=== PATIENT | male | born 1985 | race Caucasian/White ===

== ENCOUNTER 2018-02-23 17:31 | Emergency (ER) | payer SELFPAY ==
[2018-02-23] MEDS ORDERED: Famotidine/PF 20 mg/2ml Vial ONE (18:13)
[2018-02-23 20:08] LABS: MONO NEGATIVE CONTROL ZONE White (Negative) (White); MONO POSITIVE CONTROL Pink Line (Positive) (PINK/RED); Mononucleosis NEGATIVE (NEGATIVE)
== END 2018-02-23 20:46 | disposition home or self-care (01) ==
LOC: ERS 17:31
DX: J02.9 Acute pharyngitis, unspecified (principal); R59.1 Generalized enlarged lymph nodes; Z71.6 Tobacco abuse counseling; I10 Essential (primary) hypertension; F17.210 Nicotine dependence, cigarettes, uncomplicated
CPT/HCPCS: 36415; 86308; 96361; 96374; 99406; S0028

== ENCOUNTER 2019-03-22 14:52 | Emergency (ER) | payer SELFPAY ==
[2019-03-22 15:23] LABS: #Basophils 0.1 thou/uL (0.0-0.2); #Eosinphils 0.3 thou/uL (0.0-0.7); #Monocytes 0.3 thou/uL (0.11-0.59); #Neutrophils 5.2 thou/uL (1.40-6.50); %Basophils 0.8 % (0.0-1.0); %Eosinophils 4.4 % (0.0-10.0); %Lymphocytes 25.1 % (21.0-51.0); %Monocytes 3.6 % (0.0-10.0); %Neutrophils 66.2 % (42.0-75.0); Hemoglobin 13.4 g/dL (14.0-18.0); Mean Corpuscular Hemoglobin 33.4 pg (27.0-31.0); Mean Corpuscular Volume 95.4 fL (78.0-98.0); Mean Platelet Volume 5.7 fL (7.4-10.4); Platelet Count 452 thou/uL (130-400); RBC Distribution Width 11.7 % (11.5-14.5); White Blood Cell (WBC) Count 7.8 thou/uL (4.8-10.8)
[2019-03-22 15:46] LABS: ALT (SGPT) 15 U/L (8-55); AST (SGOT) 17 U/L (5-34); Albumin 3.8 g/dL (3.5-5.0); Alkaline Phosphatase 104 U/L (40-110); Anion Gap 15 mmol/L (10-20); BUN (Urea Nitrogen) 19 mg/dL (8.9-20.6); Bilirubin, Total Less than 0.2 mg/dL (0.2-1.2); Calc. Creatinine Clearance 0 mL/min (70-130); Calcium 8.5 mg/dL (7.8-10.44); Carbon Dioxide 24 mmol/L (22-29); Chloride 103 mmol/L (98-107); Estimated GFR-MDRD 89; Globulin 3.8 g/dL (2.4-3.5); Glucose 99 mg/dL (70-105); Potassium 3.6 mmol/L (3.5-5.1); Protein, Total 7.6 g/dL (6.0-8.3); Sodium 138 mmol/L (136-145)
--- NOTE | 2019-03-22 16:13 | ULT ---
RIGHT LOWER EXTREMITY VENOUS DUPLEX EXAM: 03/22/19 HISTORY: Right leg pain and swelling. Real time color Doppler evaluation of the right lower extremity was performed from groin to calf. Thi s includes evaluation of common femoral, superficial and profunda femoral, saphenous, popliteal and p osterior tibial veins. This shows a patent deep venous system. There is normal compressibility and au gmentation. Mildly prominent inguinal lymph nodes are incidentally seen. IMPRESSION: No evidence of DVT of the right lower extremity. POS: OFF
== END 2019-03-22 16:50 | disposition home or self-care (01) ==
LOC: ERS 14:52
DX: R60.0 Localized edema (principal); I10 Essential (primary) hypertension; F17.210 Nicotine dependence, cigarettes, uncomplicated
CPT/HCPCS: 36415; 80053; 85025

== ENCOUNTER 2022-06-05 20:34 | Inpatient (IN) | payer MEDICAID, SELFPAY ==
[~2022-06-05 20:34] MED LIST: Iopamidol-370 76% 500 ML 1 ML ONE
[2022-06-05 21:12] LABS: #Lymphocytes 0.1 thou/uL (1.20-3.40); #Monocytes 0.1 thou/uL (0.11-0.59); #Neutrophils 4.2 thou/uL (1.40-6.50); %Basophils 0.5 % (0.0-1.0); %Eosinophils 0.2 % (0.0-10.0); %Lymphocytes 2.1 % (21.0-51.0); %Monocytes 1.1 % (0.0-10.0); %Neutrophils 96.1 % (42.0-75.0); Hemoglobin 13.1 g/dL (14.0-18.0); Mean Corpuscular Hemoglobin 32.4 pg (27.0-31.0); Mean Corpuscular Volume 95.4 fl (78.0-98.0); Mean Platelet Volume 7.6 fL (7.4-10.4); Platelet Count 132 10x3/uL (130-400); RBC Distribution Width 12.3 % (11.5-14.5); Red Blood Cell (RBC) Count 4.05 mill/uL (4.70-6.10); White Blood Cell (WBC) Count 4.3 10x3/uL (4.8-10.8)
[2022-06-05 21:24] LABS: Amphetamine Detected (NotDetected); Barbiturates Screen Not Detected (NotDetected); Benzodiazepine Screen Not Detected (NotDetected); Cocaine Metabolite Screen Not Detected (NotDetected); Methadone Not Detected (NotDetected); Methamphetamine Detected (NotDetected); Opiate Screen Not Detected (NotDetected); Oxycodone Screen Not Detected (NotDetected); Phencyclidine (PCP) Not Detected (NotDetected); THC/Cannabinoid Screen Not Detected (NotDetected); Tricyclic Screen Detected (NotDetected)
[2022-06-05 21:36] LABS: ALT (SGPT) 27 U/L (8-55); AST (SGOT) 94 U/L (5-34); Albumin 3.1 g/dL (3.5-5.0); Alkaline Phosphatase 115 U/L (40-110); Anion Gap 17 mmol/L (10-20); BUN (Urea Nitrogen) 40 mg/dL (8.9-20.6); Bilirubin, Total 0.3 mg/dL (0.2-1.2); CK (CPK) 1051 U/L (30-200); Calc. Creatinine Clearance 0 mL/min (70-130); Calcium 7.9 mg/dL (7.8-10.44); Carbon Dioxide 21 mmol/L (22-29); Chloride 95 mmol/L (98-107); Estimated GFR 42; Globulin 3.5 g/dL (2.4-3.5); Glucose 97 mg/dL (70-105); Potassium 3.9 mmol/L (3.5-5.1); Protein, Total 6.6 g/dL (6.0-8.3); Sodium 129 mmol/L (136-145)
[2022-06-05 21:42] LABS: Bilirubin Negative (Negative); Blood, Urine 2+ (Negative); Clarity Turbid (Clear); Glucose, Urine (Dipstick) Normal (Negative); Ketone, Urine Negative (Negative); Leukocyte Negative Leu/uL (Negative); Nitrite Negative (Negative); Protein, Urine (Dipstick) 200 mg/dL (Neg-Trace); RBC/HPF None Seen HPF (0-3); Squamous Epithelial 0-3 HPF (0-3); Urobilinogen Normal mg/dL (Less than 2); WBC/HPF 0-3 HPF (0-3)
[2022-06-05] MEDS ORDERED: Senokot S 8.6-50 MG TAB PO PRN (21:48)
[2022-06-05] MEDS ORDERED: Ondansetron ODT 4 MG TAB PO PRN (21:48)
[2022-06-05 21:54] LABS: Bacteria/HPF 3+ HPF (None Seen)
[2022-06-05] MEDS ORDERED: Furosemide 40 MG/4 ML VIAL ONE (21:58)
[2022-06-05] MEDS ORDERED: Furosemide 40 MG/4 ML VIAL SLOW IVP SCH (22:00)
[2022-06-05 22:06] LABS: Actual Bicarbonate (HCO3a) 22.5 mEq/L (22-28); Analyzer IN Cardio ER; Base Excess (BEa) -1.3 mEq/L (-2.0 to +3.0); CO2 Tension 35.3 mmHg (35.0-45.0); Calcium, Ionized (arterial) 1.02 mmol/L (1.12-1.30); Carboxyhemoglobin (COHb) 0.3 gm% (0.0-3.0); Hemoglobin (Hb) 13.3 g/dL (14.0-18.0); pH, Arterial 7.42 (7.35-7.45)
[2022-06-05 22:15] LABS: O2 Tension (PaO2), arterial 58.9 mmHg (80.0-100.0); Puncture Site RRA
[2022-06-05] MEDS ORDERED: Dextrose 5%-Lactated Ringers 1,000 ML IV SCH (22:15)
[2022-06-05 22:16] LABS: ALV-art Gradient 467.375 mmHg (0-20)
[2022-06-05] MEDS: Nicotine 14 MG PATCH TD SCH (23:42)
[2022-06-06 00:23] LABS: Lactic Acid 2.9 mmol/L (0.5-2.2)
[2022-06-06 03:19] LABS: #Lymphocytes 0.1 thou/uL (1.20-3.40); #Neutrophils 3.8 thou/uL (1.40-6.50); %Eosinophils 0.2 % (0.0-10.0); %Lymphocytes 3.4 % (21.0-51.0); %Monocytes 0.6 % (0.0-10.0); %Neutrophils 95.8 % (42.0-75.0); Hemoglobin 13.1 g/dL (14.0-18.0); Mean Corpuscular HGB CONC 33.7 g/dL (32.0-36.0); Mean Corpuscular Hemoglobin 32.5 pg (27.0-31.0); Mean Corpuscular Volume 96.6 fl (78.0-98.0); Mean Platelet Volume 8.2 fL (7.4-10.4); Platelet Count 121 10x3/uL (130-400); RBC Distribution Width 12.5 % (11.5-14.5); Red Blood Cell (RBC) Count 4.02 mill/uL (4.70-6.10); White Blood Cell (WBC) Count 3.9 10x3/uL (4.8-10.8)
[2022-06-06 03:45] LABS: ALT (SGPT) 30 U/L (8-55); AST (SGOT) 120 U/L (5-34); Albumin 3.1 g/dL (3.5-5.0); Alkaline Phosphatase 114 U/L (40-110); Anion Gap 21 mmol/L (10-20); BUN (Urea Nitrogen) 44 mg/dL (8.9-20.6); Bilirubin, Total 0.4 mg/dL (0.2-1.2); Calc. Creatinine Clearance 66 mL/min (70-130); Calcium 7.9 mg/dL (7.8-10.44); Carbon Dioxide 20 mmol/L (22-29); Chloride 93 mmol/L (98-107); Estimated GFR 34; Globulin 3.8 g/dL (2.4-3.5); Glucose 109 mg/dL (70-105); Potassium 4.5 mmol/L (3.5-5.1); Protein, Total 6.9 g/dL (6.0-8.3); Sodium 129 mmol/L (136-145)
[2022-06-06] MEDS ORDERED: Furosemide 40 MG/4 ML VIAL SLOW IVP SCH (04:15)
[2022-06-06 04:28] LABS: Actual Bicarbonate (HCO3a) 23.8 mEq/L (22-28); Base Excess (BEa) -1.2 mEq/L (-2.0 to +3.0); CO2 Tension 40.7 mmHg (35.0-45.0); Calcium, Ionized (arterial) 1.03 mmol/L (1.12-1.30); Carboxyhemoglobin (COHb) 0.5 gm% (0.0-3.0); Hemoglobin (Hb) 13.6 g/dL (14.0-18.0); Potassium - ABG Lab 4.32 mmol/L (3.70-5.30); pH, Arterial 7.38 (7.35-7.45)
[2022-06-06 04:30] LABS: O2 Tension (PaO2), arterial 55.3 mmHg (80.0-100.0); Puncture Site RRA
[2022-06-06 04:35] LABS: ALV-art Gradient 535.525 mmHg (0-20)
[2022-06-06 04:46] LABS: Lactic Acid 3.1 mmol/L (0.5-2.2)
[2022-06-06] MEDS ORDERED: NOREPINEPHRINE 8 MG/250 ML-D5W 250 ML ONE (04:53)
[2022-06-06] MEDS ORDERED: Propofol 1,000 MG/100 ML VIAL IV ONE (05:12)
[2022-06-06] MEDS ORDERED: Labetalol HCl 100 MG/20 ML VIAL ONE (05:18)
[2022-06-06] MEDS: Propofol 1,000 MG/100 ML VIAL IV PRN ×6 (05:18→21:50)
[2022-06-06] MEDS ORDERED: Ventilator Sedation Protocol 1 EACH FS SCH (05:30)
[2022-06-06] MEDS ORDERED: Rocuronium Bromide 10 MG/ML (10ML VIAL) IVP SCH ×2 (05:30→12:45)
[2022-06-06] MEDS ORDERED: Propofol 1,000 MG/100 ML VIAL IV SCH (05:30)
[2022-06-06] MEDS ORDERED: Propofol BOLUS 1,000 MG/100 ML VIAL IV PRN (05:45)
[2022-06-06] MEDS ORDERED: Morphine CADD 100 ML IVPB SCH (05:45)
[2022-06-06] MEDS ORDERED: DISCONTINUE PREVIOUS NARCOTIC PAIN MEDICATIONS AND BENZODIAZEPINES FS SCH (05:45)
[2022-06-06] MEDS ORDERED: VANCOMYCIN 2 GRAM/500 ML BAG 2 GM in Premix Bag 1 BAG IVPB SCH (06:00)
[2022-06-06 06:03] LABS: Base Excess (BEa) -6.1 mEq/L (-2.0 to +3.0); Calcium, Ionized (arterial) 1.02 mmol/L (1.12-1.30); Carboxyhemoglobin (COHb) 0.5 gm% (0.0-3.0); Hemoglobin (Hb) 13.9 g/dL (14.0-18.0); pH, Arterial 7.23 (7.35-7.45)
[2022-06-06] MEDS ORDERED: VANCOMYCIN IVPB PRN (06:16)
[2022-06-06 06:30] LABS: O2 Tension (PaO2), arterial 46.5 mmHg (80.0-100.0); Puncture Site RRA
[2022-06-06] MEDS ORDERED: Dextrose 50% Abboject 50 ML SYRINGE SLOW IVP PRN (06:52)
[2022-06-06] MEDS ORDERED: Dextrose 5% in Water 1,000 ML IV PRN (06:52)
[2022-06-06] MEDS: methylPREDNISolone Sod Succ 40 MG VIAL IVP SCH ×4 (07:17→23:34)
[2022-06-06 07:25] LABS: Magnesium 2.2 mg/dL (1.6-2.6)
[2022-06-06] MEDS: NOREPINEPHRINE 8 MG/250 ML-D5W 250 ML IVPB SCH ×2 (08:00→18:17)
[2022-06-06] MEDS ORDERED: Pantoprazole 40 MG VIAL IVP SCH (09:00)
[2022-06-06] MEDS ORDERED: Famotidine 20 MG TAB PO SCH (09:00)
[2022-06-06] MEDS: Cefepime 2 GM in Sodium Chloride 0.9% 100 ML IVPB SCH ×3 (09:25→21:43)
[2022-06-06] MEDS: Heparin 5,000 UNITS/ML VIAL SC SCH ×3 (09:25→20:00)
[2022-06-06] MEDS: Acetaminophen 325 MG TAB PO PRN ×2 (09:25→22:25)
[2022-06-06] MEDS: Pantoprazole 40 MG VIAL IVP SCH (09:26)
[2022-06-06] MEDS: Oseltamivir 75 MG CAP PO SCH ×2 (09:26→20:00)
[2022-06-06 09:43] LABS: Legionella Urinary Ag Negative (Negative)
[2022-06-06] MEDS ORDERED: Lactated Ringer's 1,000 ML IV SCH (10:00)
[2022-06-06 11:43] LABS: Lactic Acid 2.8 mmol/L (0.5-2.2)
[2022-06-06 11:59] LABS: Troponin I 0.348 ng/mL (< 0.028)
[2022-06-06] MEDS: Lactated Ringer's 1,000 ML IV SCH ×2 (13:24→21:43)
[2022-06-06 16:20] LABS: Actual Bicarbonate (HCO3a) 18.4 mEq/L (22-28); CO2 Tension 36.8 mmHg (35.0-45.0); Calcium, Ionized (arterial) 0.92 mmol/L (1.12-1.30); Carboxyhemoglobin (COHb) 0.3 gm% (0.0-3.0); Hemoglobin (Hb) 12.4 g/dL (14.0-18.0); Potassium - ABG Lab 4.77 mmol/L (3.70-5.30); pH, Arterial 7.32 (7.35-7.45)
[2022-06-06] MEDS ORDERED: Furosemide 100 MG/10 ML VIAL SLOW IVP SCH (19:45)
[2022-06-06 19:48] LABS: CO2 Tension 35.5 mmHg (35.0-45.0); Calcium, Ionized (arterial) 0.88 mmol/L (1.12-1.30); Carboxyhemoglobin (COHb) 0.3 gm% (0.0-3.0); Hemoglobin (Hb) 12.2 g/dL (14.0-18.0); O2 Tension (PaO2), arterial 85.9 mmHg (80.0-100.0); Potassium - ABG Lab 5.25 mmol/L (3.70-5.30); pH, Arterial 7.27 (7.35-7.45)
[2022-06-06 19:50] LABS: Puncture Site Arterial Line
[2022-06-06 19:51] LABS: ALV-art Gradient 511.425 mmHg (0-20)
[2022-06-06] MEDS: Nicotine 14 MG PATCH TD SCH (21:43)
[2022-06-06] MEDS: Dexmedetomidine 1,000 MCG in Sodium Chloride 0.9% 250 ML 240 ML IVPB SCH (21:48)
[2022-06-06] MEDS: Midazolam HCl 2 mg/2 ml Vial SLOW IVP PRN (21:50)
[2022-06-06 22:10] LABS: Strep pneumo Urine Ag POSITIVE (NEGATIVE)
[2022-06-07] MEDS: Vecuronium Bromide 50 MG in Sodium Chloride 0.9% 250 ML 250 ML IV SCH ×2 (01:40→02:21)
[2022-06-07] MEDS: Propofol 1,000 MG/100 ML VIAL IV PRN ×8 (02:21→21:44)
[2022-06-07] MEDS ORDERED: Acetaminophen 650 MG Suppository PR PRN (02:34)
[2022-06-07] MEDS: Dexmedetomidine 1,000 MCG in Sodium Chloride 0.9% 250 ML 240 ML IVPB SCH ×3 (04:11→17:14)
[2022-06-07 04:41] LABS: #Lymphocytes 0.6 thou/uL (1.20-3.40); #Monocytes 0.2 thou/uL (0.11-0.59); #Neutrophils 8.6 thou/uL (1.40-6.50); %Lymphocytes 6.4 % (21.0-51.0); %Monocytes 1.6 % (0.0-10.0); Mean Corpuscular HGB CONC 34.8 g/dL (32.0-36.0); Mean Corpuscular Hemoglobin 34.1 pg (27.0-31.0); Mean Platelet Volume 9.1 fL (7.4-10.4); Platelet Count 142 10x3/uL (130-400); RBC Distribution Width 12.7 % (11.5-14.5); White Blood Cell (WBC) Count 9.3 10x3/uL (4.8-10.8)
[2022-06-07 05:12] LABS: ALT (SGPT) 3044 U/L (8-55); AST (SGOT) Greater than 3500 U/L (5-34); Albumin 2.7 g/dL (3.5-5.0); Alkaline Phosphatase 132 U/L (40-110); Anion Gap 29 mmol/L (10-20); BUN (Urea Nitrogen) 89 mg/dL (8.9-20.6); Bilirubin, Total 1.1 mg/dL (0.2-1.2); CK (CPK) Greater than 4000 U/L (30-200); Calc. Creatinine Clearance 24 mL/min (70-130); Calcium 6.4 mg/dL (7.8-10.44); Carbon Dioxide 13 mmol/L (22-29); Chloride 95 mmol/L (98-107); Estimated GFR 10; Globulin 4.1 g/dL (2.4-3.5); Glucose 178 mg/dL (70-105); Potassium 6.5 mmol/L (3.5-5.1); Protein, Total 6.8 g/dL (6.0-8.3); Sodium 130 mmol/L (136-145)
[2022-06-07 05:19] LABS: Vancomycin, Random 26.3 ug/mL (See Comment)
[2022-06-07] MEDS ORDERED: Sodium Bicarb 50 MEQ/50 ML VIAL IVP SCH ×2 (05:30→05:45)
[2022-06-07] MEDS ORDERED: Insulin Regular 300 UNITS/3 ML VIAL IVP SCH (05:30)
[2022-06-07] MEDS ORDERED: Dextrose 50% Abboject 50 ML SYRINGE SLOW IVP SCH (05:30)
[2022-06-07] MEDS ORDERED: Calcium Gluc 4.6 MEQ/10 ML (100 MG/ML) SLOW IVP SCH (05:30)
[2022-06-07 05:34] LABS: CO2 Tension 33.6 mmHg (35.0-45.0); Carboxyhemoglobin (COHb) 0.3 gm% (0.0-3.0); Hemoglobin (Hb) 12.7 g/dL (14.0-18.0); O2 Tension (PaO2), arterial 92.8 mmHg (80.0-100.0); Potassium - ABG Lab 5.84 mmol/L (3.70-5.30)
[2022-06-07 05:35] LABS: pH, Arterial 7.16 (7.35-7.45)
[2022-06-07 05:36] LABS: Actual Bicarbonate (HCO3a) 11.6 mEq/L (22-28); Calcium, Ionized (arterial) 0.76 mmol/L (1.12-1.30); Puncture Site Arterial Line
[2022-06-07] MEDS ORDERED: Sodium Bicarb 50 MEQ/50 ML VIAL ONE (05:39)
[2022-06-07] MEDS ORDERED: Vancomycin Dose by Levels Sliding Scale (Wt > 99) FS SCH (05:45)
[2022-06-07] MEDS ORDERED: Sodium Bicarbonate 150 MEQ in Dextrose 5% in Water 1,000 ML IV SCH (05:45)
[2022-06-07] MEDS ORDERED: Albumin 25% 25 GM/100 ML BOT IVPB SCH (05:45)
[2022-06-07] MEDS: methylPREDNISolone Sod Succ 40 MG VIAL IVP SCH ×4 (05:58→23:11)
[2022-06-07] MEDS: Cefepime 2 GM in Sodium Chloride 0.9% 100 ML IVPB SCH (05:58)
[2022-06-07 07:59] LABS: Lactic Acid 2.6 mmol/L (0.5-2.2)
[2022-06-07 08:57] LABS: Chloride 101 mmol/L (98-107); Sodium 132 mmol/L (136-145)
[2022-06-07 08:58] LABS: Glucose 258 mg/dL (70-105)
[2022-06-07 08:59] LABS: Anion Gap 25 mmol/L (10-20); Carbon Dioxide 11 mmol/L (22-29)
[2022-06-07 09:01] LABS: Calc. Creatinine Clearance 26 mL/min (70-130); Calcium 5.1 mg/dL (7.8-10.44); Estimated GFR 12
[2022-06-07 09:02] LABS: BUN (Urea Nitrogen) 85 mg/dL (8.9-20.6)
[2022-06-07] MEDS: Heparin 5,000 UNITS/ML VIAL SC SCH ×3 (09:10→21:44)
[2022-06-07] MEDS: Pantoprazole 40 MG VIAL IVP SCH (09:11)
[2022-06-07] MEDS: Oseltamivir 75 MG CAP PO SCH (09:20)
[2022-06-07 09:22] LABS: Hep B Core Total Ab Non-Reactive (NonReactive); Hep B Core Total Index 0.12 S/CO (0-0.79); Hep B Surf Ag Non-Reactive S/CO (NonReactive)
[2022-06-07 09:23] LABS: HBSAB Concentration Less than 8.00 mIU/mL; HBSAg Index 0.24 S/CO (0-0.99); Hep B Surf AB Non-Reactive (NonReactive)
[2022-06-07 09:24] LABS: Hep C IgG Ab Non-Reactive (NonReactive)
[2022-06-07 09:25] LABS: Hep C Index 0.09 S/CO (0-0.79)
[2022-06-07] MEDS ORDERED: CALCIUM GLUC 1 GM/NS 50 ML 1 GM in Premix Bag 1 BAG IVPB SCH (10:00)
[2022-06-07] MEDS: NOREPINEPHRINE 8 MG/250 ML-D5W 250 ML IVPB SCH (11:03)
[2022-06-07] MEDS ORDERED: Vancomycin Dialysis Sliding Scale (Wt > 99) FS SCH (11:15)
[2022-06-07] MEDS: Insulin Regular 300 UNITS/3 ML VIAL SC PRN ×2 (11:22→17:24)
[2022-06-07] MEDS: Sodium Chloride 0.9% 1,000 ML IV SCH ×2 (11:30→23:16)
[2022-06-07 14:19] LABS: O2 Tension (PaO2), arterial 55.9 mmHg (80.0-100.0)
[2022-06-07 14:20] LABS: Puncture Site Arterial Line
[2022-06-07] MEDS: Cefepime 0.5 GM, Admixture Fee 1 EACH in Sodium Chloride 0.9% 100 ML IVPB SCH (17:18)
[2022-06-07 17:58] LABS: Bilirubin Negative (Negative); Blood, Urine 3+ (Negative); Clarity Extra Turbid (Clear); Glucose, Urine (Dipstick) 50 mg/dL (Negative); Ketone, Urine Negative (Negative); Leukocyte Negative Leu/uL (Negative); Nitrite Negative (Negative); Protein, Urine (Dipstick) 100 mg/dL (Neg-Trace); Urobilinogen Normal mg/dL (Less than 2); WBC/HPF 0-3 HPF (0-3); pH, Urine 5.5 (5.0-9.0)
[2022-06-07 18:04] LABS: Bacteria/HPF 2+ HPF (None Seen)
[2022-06-07] MEDS: Nicotine 14 MG PATCH TD SCH (22:08)
[2022-06-08] MEDS: Propofol 1,000 MG/100 ML VIAL IV PRN ×7 (01:24→20:31)
[2022-06-08] MEDS: Insulin Regular 300 UNITS/3 ML VIAL SC PRN ×4 (01:41→18:49)
[2022-06-08] MEDS: NOREPINEPHRINE 8 MG/250 ML-D5W 250 ML IVPB SCH (01:47)
[2022-06-08 05:10] LABS: INR-International Normal Ratio 1.3; PTT 37.7 sec (22.9-36.1); Prothrombin Time 16.7 sec (12.0-14.7)
[2022-06-08] MEDS: methylPREDNISolone Sod Succ 40 MG VIAL IVP SCH (05:23)
[2022-06-08 05:34] LABS: Lactic Acid 3.5 mmol/L (0.5-2.2)
[2022-06-08 05:35] LABS: ALT (SGPT) 2379 U/L (8-55); AST (SGOT) Greater than 3500 U/L (5-34); Albumin 2.7 g/dL (3.5-5.0); Alkaline Phosphatase 187 U/L (40-110); Bilirubin, Direct 0.2 mg/dL (0.1-0.3); Bilirubin, Total 1.2 mg/dL (0.2-1.2); Protein, Total 7.7 g/dL (6.0-8.3)
[2022-06-08 06:00] LABS: CK (CPK) 10312 U/L (30-200)
[2022-06-08 06:07] LABS: Hemoglobin 13.6 g/dL (14.0-18.0); Mean Corpuscular HGB CONC 37.2 g/dL (32.0-36.0); Mean Platelet Volume 9.6 fL (7.4-10.4); Platelet Count 109 10x3/uL (130-400); RBC Distribution Width 12.7 % (11.5-14.5); Red Blood Cell (RBC) Count 3.77 mill/uL (4.70-6.10); White Blood Cell (WBC) Count 8.4 10x3/uL (4.8-10.8)
[2022-06-08 06:08] LABS: Band 15 % (5-11); Lymphocytes 8 % (21-51); MDiff Complete? YES; Neutrophil 77 % (42-75); Platelet Morphology Comment Appears Decreased; RBC Morphology Normal
[2022-06-08] MEDS: Dexmedetomidine 1,000 MCG in Sodium Chloride 0.9% 250 ML 240 ML IVPB SCH ×3 (07:00→20:54)
[2022-06-08 07:46] LABS: Vancomycin, Random 16.6 ug/mL (See Comment)
[2022-06-08 07:49] LABS: Base Excess (BEa) -16.5 mEq/L (-2.0 to +3.0); CO2 Tension 28.8 mmHg (35.0-45.0); Carboxyhemoglobin (COHb) 0.2 gm% (0.0-3.0); O2 Tension (PaO2), arterial 94.8 mmHg (80.0-100.0); Potassium - ABG Lab 3.57 mmol/L (3.70-5.30)
[2022-06-08 07:52] LABS: pH, Arterial 7.18 (7.35-7.45)
[2022-06-08 07:53] LABS: Actual Bicarbonate (HCO3a) 10.5 mEq/L (22-28); Calcium, Ionized (arterial) 0.59 mmol/L (1.12-1.30); Puncture Site Arterial Line
[2022-06-08] MEDS ORDERED: Sodium Bicarbonate 150 MEQ in Dextrose 5% in Water 1,000 ML IV SCH (08:45)
[2022-06-08] MEDS ORDERED: Sodium Bicarb 50 MEQ/50 ML VIAL IVP SCH (08:45)
[2022-06-08] MEDS: Heparin 5,000 UNITS/ML VIAL SC SCH ×3 (09:00→20:31)
[2022-06-08] MEDS: Pantoprazole 40 MG VIAL IVP SCH (09:04)
[2022-06-08] MEDS: Lactated Ringer's 1,000 ML IV SCH (09:11)
[2022-06-08] MEDS: CALCIUM GLUC 1 GM/NS 50 ML 1 GM in Premix Bag 1 BAG IVPB SCH ×2 (09:12→20:31)
[2022-06-08] MEDS: Dexamethasone 10 MG/ML VIAL SLOW IVP SCH ×2 (09:35→20:31)
[2022-06-08 10:17] LABS: ALT (SGPT) 2443 U/L (8-55); AST (SGOT) Greater than 3500 U/L (5-34); Albumin 2.7 g/dL (3.5-5.0); Alkaline Phosphatase 203 U/L (40-110); Anion Gap 33 mmol/L (10-20); BUN (Urea Nitrogen) 91 mg/dL (8.9-20.6); Bilirubin, Total 1.1 mg/dL (0.2-1.2); Calc. Creatinine Clearance 21 mL/min (70-130); Carbon Dioxide 11 mmol/L (22-29); Chloride 99 mmol/L (98-107); Estimated GFR 9; Globulin 3.4 g/dL (2.4-3.5); Glucose 213 mg/dL (70-105); Lipase 250 U/L (8-78); Potassium 6.3 mmol/L (3.5-5.1); Protein, Total 6.1 g/dL (6.0-8.3); Sodium 137 mmol/L (136-145)
[2022-06-08] MEDS: Midazolam HCl 2 mg/2 ml Vial SLOW IVP PRN (10:35)
[2022-06-08] MEDS ORDERED: Cefepime 0.5 GM in Admixture Fee 1 EACH IVPB SCH (11:00)
[2022-06-08 13:18] LABS: Base Excess (BEa) -11.8 mEq/L (-2.0 to +3.0); CO2 Tension 37.1 mmHg (35.0-45.0); Carboxyhemoglobin (COHb) 0.2 gm% (0.0-3.0); Hemoglobin (Hb) 12.2 g/dL (14.0-18.0); O2 Tension (PaO2), arterial 61.6 mmHg (80.0-100.0); Potassium - ABG Lab 5.15 mmol/L (3.70-5.30); pH, Arterial 7.23 (7.35-7.45)
[2022-06-08 13:19] LABS: ALV-art Gradient 533.725 mmHg (0-20); Calcium, Ionized (arterial) 0.69 mmol/L (1.12-1.30); Puncture Site Arterial Line
[2022-06-08] MEDS ORDERED: Albumin 25% 25 GM/100 ML BOT IVPB PRN (16:26)
[2022-06-08] MEDS ORDERED: Vancomycin 1 GM in Premix Bag 1 BAG IVPB SCH (17:00)
[2022-06-08] MEDS: Cefepime 0.5 GM, Admixture Fee 1 EACH in Sodium Chloride 0.9% 100 ML IVPB SCH (17:20)
[2022-06-08] MEDS: Oseltamivir 6 MG/ML ORAL SUSP PO SCH (18:03)
[2022-06-08] MEDS: Nicotine 14 MG PATCH TD SCH (22:13)
[2022-06-09] MEDS: Propofol 1,000 MG/100 ML VIAL IV PRN ×3 (00:24→07:39)
[2022-06-09] MEDS: Insulin Regular 300 UNITS/3 ML VIAL SC PRN ×4 (00:25→19:06)
[2022-06-09] MEDS: Dexmedetomidine 1,000 MCG in Sodium Chloride 0.9% 250 ML 240 ML IVPB SCH ×3 (04:38→17:28)
[2022-06-09] MEDS: Lactated Ringer's 1,000 ML IV SCH (05:03)
[2022-06-09 05:34] LABS: ALT (SGPT) 1982 U/L (8-55); AST (SGOT) Greater than 3500 U/L (5-34); Albumin 2.4 g/dL (3.5-5.0); Alkaline Phosphatase 246 U/L (40-110); Anion Gap 27 mmol/L (10-20); BUN (Urea Nitrogen) 71 mg/dL (8.9-20.6); Bilirubin, Direct 0.2 mg/dL (0.1-0.3); Bilirubin, Total 1.1 mg/dL (0.2-1.2); Calc. Creatinine Clearance 28 mL/min (70-130); Calcium 5.7 mg/dL (7.8-10.44); Carbon Dioxide 17 mmol/L (22-29); Chloride 94 mmol/L (98-107); Estimated GFR 12; Glucose 269 mg/dL (70-105); Potassium 5.2 mmol/L (3.5-5.1); Protein, Total 7.4 g/dL (6.0-8.3); Sodium 133 mmol/L (136-145)
[2022-06-09 05:48] LABS: CK (CPK) 9120 U/L (30-200)
[2022-06-09 06:05] LABS: Hemoglobin 13.6 g/dL (14.0-18.0); Mean Corpuscular HGB CONC 36.9 g/dL (32.0-36.0); Mean Corpuscular Hemoglobin 34.6 pg (27.0-31.0); Mean Corpuscular Volume 93.6 fl (78.0-98.0); Mean Platelet Volume 9.7 fL (7.4-10.4); Platelet Count 69 10x3/uL (130-400); RBC Distribution Width 12.5 % (11.5-14.5); Red Blood Cell (RBC) Count 3.94 mill/uL (4.70-6.10); White Blood Cell (WBC) Count 9.2 10x3/uL (4.8-10.8)
[2022-06-09 06:06] LABS: Band 4 % (5-11); Hypochromia SLIGHT = 6-15 cells (100X) (0-5/hpf); Lymphocytes 5 % (21-51); MDiff Complete? YES; Monocytes 5 % (0-10); Neutrophil 86 % (42-75); Nucleated RBC 2 % (0); Platelet Morphology Comment Appears Adequate
[2022-06-09 08:12] LABS: Vancomycin, Random 23.7 ug/mL (See Comment)
[2022-06-09 08:18] LABS: Actual Bicarbonate (HCO3a) 17.4 mEq/L (22-28); Base Excess (BEa) -8.2 mEq/L (-2.0 to +3.0); CO2 Tension 36.1 mmHg (35.0-45.0); Carboxyhemoglobin (COHb) 0.3 gm% (0.0-3.0); Hemoglobin (Hb) 12.3 g/dL (14.0-18.0); Potassium - ABG Lab 4.69 mmol/L (3.70-5.30)
[2022-06-09 08:19] LABS: Cholesterol 164 mg/dl (< 200 Desired); HDL Cholesterol Less than 8 mg/dL (>60 Neg Risk)
[2022-06-09 08:20] LABS: Calcium, Ionized (arterial) 0.75 mmol/L (1.12-1.30); O2 Tension (PaO2), arterial 55.1 mmHg (80.0-100.0); Puncture Site Arterial Line
[2022-06-09 08:21] LABS: ALV-art Gradient 541.475 mmHg (0-20)
[2022-06-09 08:31] LABS: Triglycerides 2197 mg/dL (Less than 150)
[2022-06-09] MEDS: Midazolam HCl 2 mg/2 ml Vial SLOW IVP PRN ×2 (09:20→12:49)
[2022-06-09] MEDS: Heparin 5,000 UNITS/ML VIAL SC SCH ×3 (09:25→21:02)
[2022-06-09] MEDS: Pantoprazole 40 MG VIAL IVP SCH (09:25)
[2022-06-09] MEDS: Dexamethasone 10 MG/ML VIAL SLOW IVP SCH ×2 (09:26→21:02)
[2022-06-09] MEDS: CALCIUM GLUC 1 GM/NS 50 ML 1 GM in Premix Bag 1 BAG IVPB SCH ×2 (09:50→21:02)
[2022-06-09] MEDS: NOREPINEPHRINE 8 MG/250 ML-D5W 250 ML IVPB SCH (12:25)
[2022-06-09] MEDS ORDERED: Heparin 10,000 UNITS/ 10 ML VIAL ONE (12:26)
[2022-06-09] MEDS: Morphine 4 MG/ML VIAL SLOW IVP PRN (13:25)
[2022-06-09] MEDS ORDERED: Vecuronium Bromide 20 MG VIAL IV PRN (13:34)
[2022-06-09] MEDS ORDERED: Midazolam In 0.9 % NaCl/PF 100 ML IVPB SCH (13:45)
[2022-06-09] MEDS ORDERED: Vancomycin HCl 500 MG in Sodium Chloride 0.9% 100 ML IVPB SCH (17:00)
[2022-06-09] MEDS ORDERED: Polyethylene Glycol 3350 17 GM Packet PER TUBE SCH (17:15)
[2022-06-09] MEDS: Cefepime 0.5 GM, Admixture Fee 1 EACH in Sodium Chloride 0.9% 100 ML IVPB SCH (17:28)
[2022-06-09] MEDS ORDERED: Sterile Water 10 ML ONE (18:06)
[2022-06-09] MEDS: Vecuronium 10 MG VIAL IV PRN ×2 (18:30→22:20)
[2022-06-09] MEDS: Metoclopramide HCl 10 MG/2 ML VIAL IVP SCH (18:45)
[2022-06-09] MEDS: Senokot S 8.6-50 MG TAB PER TUBE SCH (21:02)
[2022-06-09] MEDS: Nicotine 14 MG PATCH TD SCH (21:32)
[2022-06-09] MEDS: Sterile Water 10 ML VIAL FS PRN (22:20)
[2022-06-10] MEDS: Metoclopramide HCl 10 MG/2 ML VIAL IVP SCH ×3 (00:04→09:50)
[2022-06-10] MEDS: Lactated Ringer's 1,000 ML IV SCH ×2 (00:04→05:35)
[2022-06-10] MEDS: Dexmedetomidine 1,000 MCG in Sodium Chloride 0.9% 250 ML 240 ML IVPB SCH ×3 (00:57→13:43)
[2022-06-10] MEDS ORDERED: Labetalol HCl 100 MG/20 ML VIAL SLOW IVP SCH (01:00)
[2022-06-10 04:37] LABS: Hemoglobin 12.7 g/dL (14.0-18.0); Mean Corpuscular HGB CONC 34.6 g/dL (32.0-36.0); Mean Corpuscular Volume 95.2 fl (78.0-98.0); Mean Platelet Volume 10.7 fL (7.4-10.4); Platelet Count 47 10x3/uL (130-400); RBC Distribution Width 12.6 % (11.5-14.5); Red Blood Cell (RBC) Count 3.86 mill/uL (4.70-6.10); White Blood Cell (WBC) Count 9.5 10x3/uL (4.8-10.8)
[2022-06-10 04:52] LABS: ALT (SGPT) 1335 U/L (8-55); AST (SGOT) 2069 U/L (5-34); Albumin 2.4 g/dL (3.5-5.0); Alkaline Phosphatase 239 U/L (40-110); Bilirubin, Direct 0.4 mg/dL (0.1-0.3); Bilirubin, Total 0.9 mg/dL (0.2-1.2); Protein, Total 5.8 g/dL (6.0-8.3)
[2022-06-10] MEDS: Vecuronium 10 MG VIAL IV PRN ×5 (04:55→23:23)
[2022-06-10] MEDS: Sterile Water 10 ML VIAL FS PRN ×2 (04:55→23:23)
[2022-06-10 05:13] LABS: Band 3 % (5-11); Lymphocytes 2 % (21-51); MDiff Complete? YES; Monocytes 4 % (0-10); Neutrophil 91 % (42-75); Platelet Morphology Comment Appears Decreased; RBC Morphology Normal
[2022-06-10 05:22] LABS: CK (CPK) 8658 U/L (30-200)
[2022-06-10 06:55] LABS: Vancomycin, Random 19.9 ug/mL (See Comment)
[2022-06-10 08:17] LABS: Actual Bicarbonate (HCO3a) 17.5 mEq/L (22-28); Base Excess (BEa) -8.5 mEq/L (-2.0 to +3.0); CO2 Tension 38.2 mmHg (35.0-45.0); Calcium, Ionized (arterial) 0.82 mmol/L (1.12-1.30); Carboxyhemoglobin (COHb) 0.4 gm% (0.0-3.0); Hemoglobin (Hb) 12.4 g/dL (14.0-18.0); O2 Tension (PaO2), arterial 60.8 mmHg (80.0-100.0); Potassium - ABG Lab 4.79 mmol/L (3.70-5.30); pH, Arterial 7.28 (7.35-7.45)
[2022-06-10 08:19] LABS: Puncture Site Arterial Line
[2022-06-10] MEDS: Dexamethasone 10 MG/ML VIAL SLOW IVP SCH ×2 (09:50→21:50)
[2022-06-10] MEDS: Senokot S 8.6-50 MG TAB PER TUBE SCH ×2 (09:51→21:51)
[2022-06-10] MEDS: Pantoprazole 40 MG VIAL IVP SCH (09:51)
[2022-06-10] MEDS: Polyethylene Glycol 3350 17 GM Packet PER TUBE SCH (09:51)
[2022-06-10] MEDS: Albumin 25% 25 GM/100 ML BOT IVPB SCH ×3 (09:57→21:50)
[2022-06-10 11:56] LABS: Glucose 160 mg/dL (70-105)
[2022-06-10] MEDS: Insulin Regular 300 UNITS/3 ML VIAL SC PRN (12:14)
[2022-06-10] MEDS: Cefepime 0.5 GM, Admixture Fee 1 EACH in Sodium Chloride 0.9% 100 ML IVPB SCH (16:55)
[2022-06-10] MEDS: Oseltamivir 6 MG/ML ORAL SUSP PO SCH (16:56)
[2022-06-10] MEDS ORDERED: Vancomycin 1 GM in Premix Bag 1 BAG IVPB SCH (18:00)
[2022-06-10 18:39] LABS: Glucose 92 mg/dL (70-105)
[2022-06-10 19:17] LABS: Phosphorus 5.8 mg/dL (2.3-4.7)
[2022-06-10 22:37] LABS: Mycoplasma pneumoniae IgG AB 660 U/mL (0-99); Mycoplasma pneumoniae IgM AB Less than 770 U/mL (0-769)
[2022-06-10 22:45] LABS: Glucose 114 mg/dL (70-105)
[2022-06-10] MEDS: Nicotine 14 MG PATCH TD SCH (23:23)
[2022-06-11] MEDS: Albumin 25% 25 GM/100 ML BOT IVPB SCH (02:29)
[2022-06-11] MEDS: Midazolam HCl 2 mg/2 ml Vial SLOW IVP PRN (02:29)
[2022-06-11 04:46] LABS: Hemoglobin 11.2 g/dL (14.0-18.0); Mean Corpuscular HGB CONC 33.6 g/dL (32.0-36.0); Mean Platelet Volume 10.9 fL (7.4-10.4); Platelet Count 46 10x3/uL (130-400); RBC Distribution Width 12.9 % (11.5-14.5); Red Blood Cell (RBC) Count 3.39 mill/uL (4.70-6.10); White Blood Cell (WBC) Count 15.6 10x3/uL (4.8-10.8)
[2022-06-11 04:59] LABS: ALT (SGPT) 760 U/L (8-55); AST (SGOT) 720 U/L (5-34); Albumin 3.6 g/dL (3.5-5.0); Alkaline Phosphatase 202 U/L (40-110); Anion Gap 23 mmol/L (10-20); Bilirubin, Direct 0.6 mg/dL (0.1-0.3); Calcium 6.8 mg/dL (7.8-10.44)
[2022-06-11 05:00] LABS: BUN (Urea Nitrogen) 50 mg/dL (8.9-20.6); Calc. Creatinine Clearance 35 mL/min (70-130); Carbon Dioxide 22 mmol/L (22-29); Chloride 97 mmol/L (98-107); Estimated GFR 16; Glucose 145 mg/dL (70-105); Potassium 5.8 mmol/L (3.5-5.1); Protein, Total 6.4 g/dL (6.0-8.3); Sodium 136 mmol/L (136-145)
[2022-06-11 05:13] LABS: CK (CPK) 7546 U/L (30-200)
[2022-06-11 05:17] LABS: Band 10 % (5-11); Hypochromia SLIGHT = 6-15 cells (100X) (0-5/hpf); Lymphocytes 3 % (21-51); MDiff Complete? YES; Monocytes 6 % (0-10); Neutrophil 81 % (42-75); Platelet Morphology Comment Appears Decreased
[2022-06-11] MEDS: Lactated Ringer's 1,000 ML IV SCH (05:41)
[2022-06-11 07:07] LABS: Vancomycin, Random 32.2 ug/mL (See Comment)
[2022-06-11] MEDS: Dexmedetomidine 1,000 MCG in Sodium Chloride 0.9% 250 ML 240 ML IVPB SCH ×3 (07:37→20:26)
[2022-06-11 08:16] LABS: Actual Bicarbonate (HCO3a) 22.2 mEq/L (22-28); Base Excess (BEa) -5.9 mEq/L (-2.0 to +3.0); CO2 Tension 55.6 mmHg (35.0-45.0); Calcium, Ionized (arterial) 0.83 mmol/L (1.12-1.30); Carboxyhemoglobin (COHb) 0.8 gm% (0.0-3.0); Hemoglobin (Hb) 11.7 g/dL (14.0-18.0); Potassium - ABG Lab 5.92 mmol/L (3.70-5.30); pH, Arterial 7.22 (7.35-7.45)
[2022-06-11 08:18] LABS: O2 Tension (PaO2), arterial 48.9 mmHg (80.0-100.0); Puncture Site Arterial Line
[2022-06-11] MEDS: Vecuronium 10 MG VIAL IV PRN ×2 (09:10→13:19)
[2022-06-11] MEDS: Dexamethasone 10 MG/ML VIAL SLOW IVP SCH ×2 (09:27→21:12)
[2022-06-11] MEDS: Polyethylene Glycol 3350 17 GM Packet PER TUBE SCH (09:27)
[2022-06-11] MEDS: Pantoprazole 40 MG VIAL IVP SCH (09:27)
[2022-06-11] MEDS: Senokot S 8.6-50 MG TAB PER TUBE SCH ×2 (09:27→21:12)
[2022-06-11] MEDS ORDERED: Albumin 25% 100 ML ONE (10:29)
[2022-06-11] MEDS ORDERED: Albumin 25% 25 GM/100 ML BOT IVPB PRN (10:50)
[2022-06-11] MEDS ORDERED: Sterile Water 10 ML VIAL IVP SCH (12:15)
[2022-06-11] MEDS ORDERED: Activase 2 MG VIAL CATH SCH (12:15)
[2022-06-11] MEDS ORDERED: Calcium Chloride 13.6 MEQ in Sodium Chloride 0.9% 100 ML IVPB SCH (13:30)
[2022-06-11] MEDS: Cefepime 0.5 GM, Admixture Fee 1 EACH in Sodium Chloride 0.9% 100 ML IVPB SCH (16:56)
[2022-06-11] MEDS: Morphine 4 MG/ML VIAL SLOW IVP PRN (17:39)
[2022-06-11] MEDS: NOREPINEPHRINE 8 MG/250 ML-D5W 250 ML IVPB SCH (19:45)
[2022-06-11] MEDS: Nicotine 14 MG PATCH TD SCH (21:12)
[2022-06-12] MEDS: Dexmedetomidine 1,000 MCG in Sodium Chloride 0.9% 250 ML 240 ML IVPB SCH ×2 (02:56→12:13)
[2022-06-12 04:48] LABS: ALT (SGPT) 522 U/L (8-55); AST (SGOT) 453 U/L (5-34); Albumin 3.4 g/dL (3.5-5.0); Alkaline Phosphatase 194 U/L (40-110); Bilirubin, Direct 0.5 mg/dL (0.1-0.3); Bilirubin, Total 0.8 mg/dL (0.2-1.2); Protein, Total 6.3 g/dL (6.0-8.3)
[2022-06-12 05:20] LABS: CK (CPK) 10376 U/L (30-200)
[2022-06-12 05:21] LABS: Band 3 % (5-11); Hemoglobin 10.6 g/dL (14.0-18.0); Lymphocytes 1 % (21-51); MDiff Complete? YES; Macrocytosis SLIGHT = 6-15 cells (100X) (0-5/hpf); Mean Corpuscular Hemoglobin 32.4 pg (27.0-31.0); Mean Platelet Volume 11.4 fL (7.4-10.4); Monocytes 5 % (0-10); Neutrophil 91 % (42-75); Ovalocytes SLIGHT = 2-5 cells (100X) (0-1/hpf); Platelet Count 46 10x3/uL (130-400); Platelet Morphology Comment Appears Decreased; RBC Distribution Width 13.6 % (11.5-14.5); Red Blood Cell (RBC) Count 3.28 mill/uL (4.70-6.10); White Blood Cell (WBC) Count 18.6 10x3/uL (4.8-10.8)
[2022-06-12 07:20] LABS: Vancomycin, Random 24.7 ug/mL (See Comment)
[2022-06-12 08:08] LABS: Actual Bicarbonate (HCO3a) 21.2 mEq/L (22-28); Base Excess (BEa) -8.5 mEq/L (-2.0 to +3.0); Calcium, Ionized (arterial) 0.88 mmol/L (1.12-1.30); Carboxyhemoglobin (COHb) 0.8 gm% (0.0-3.0); Hemoglobin (Hb) 11.4 g/dL (14.0-18.0)
[2022-06-12] MEDS: Dexamethasone 10 MG/ML VIAL SLOW IVP SCH ×2 (08:43→20:52)
[2022-06-12] MEDS: Senokot S 8.6-50 MG TAB PER TUBE SCH ×2 (08:43→20:52)
[2022-06-12] MEDS: Pantoprazole 40 MG VIAL IVP SCH (08:44)
[2022-06-12] MEDS: Polyethylene Glycol 3350 17 GM Packet PER TUBE SCH (08:44)
[2022-06-12] MEDS: NOREPINEPHRINE 8 MG/250 ML-D5W 250 ML IVPB SCH (08:45)
[2022-06-12] MEDS: Cholecalciferol (Vitamin D3) 400 UNITS TAB PO SCH (08:45)
[2022-06-12] MEDS ORDERED: Calcium Gluconate 4.6 MEQ in Sodium Chloride 0.9% 100 ML IVPB SCH (08:49)
[2022-06-12 08:54] LABS: CO2 Tension 65.1 mmHg (35.0-45.0); O2 Tension (PaO2), arterial 57.3 mmHg (80.0-100.0); Potassium - ABG Lab 6.87 mmol/L (3.70-5.30); pH, Arterial 7.13 (7.35-7.45)
[2022-06-12] MEDS ORDERED: CALCIUM GLUC 1 GM/NS 50 ML 1 GM in Premix Bag 1 BAG IVPB SCH (09:45)
[2022-06-12] MEDS ORDERED: Heparin 10,000 UNITS/ 10 ML VIAL ONE (09:58)
[2022-06-12] MEDS: Cefepime 0.5 GM, Admixture Fee 1 EACH in Sodium Chloride 0.9% 100 ML IVPB SCH (17:14)
[2022-06-12] MEDS ORDERED: Albuterol Sulfate 2.5 mg/0.5 ml Neb ONE ×2 (18:14→21:54)
[2022-06-12] MEDS: Nicotine 14 MG PATCH TD SCH (21:33)
[2022-06-13] MEDS ORDERED: Acetaminophen 500 MG TAB PER TUBE SCH (01:30)
[2022-06-13] MEDS: Dexmedetomidine 1,000 MCG in Sodium Chloride 0.9% 250 ML 240 ML IVPB SCH ×2 (01:37→21:30)
[2022-06-13] MEDS ORDERED: Albuterol Sulfate 2.5 mg/0.5 ml Neb ONE (02:28)
[2022-06-13 04:10] LABS: ALT (SGPT) 384 U/L (8-55); AST (SGOT) 337 U/L (5-34); Albumin 3.1 g/dL (3.5-5.0); Alkaline Phosphatase 184 U/L (40-110); Anion Gap 20 mmol/L (10-20); BUN (Urea Nitrogen) 70 mg/dL (8.9-20.6); Bilirubin, Direct 0.6 mg/dL (0.1-0.3); Calc. Creatinine Clearance 35 mL/min (70-130); Calcium 7.8 mg/dL (7.8-10.44); Carbon Dioxide 24 mmol/L (22-29); Chloride 95 mmol/L (98-107); Estimated GFR 16; Glucose 134 mg/dL (70-105); Protein, Total 6.2 g/dL (6.0-8.3); Sodium 134 mmol/L (136-145)
[2022-06-13 04:38] LABS: CK (CPK) 8271 U/L (30-200)
[2022-06-13 05:14] LABS: Band 18 % (5-11); Hemoglobin 9.9 g/dL (14.0-18.0); Hypochromia SLIGHT = 6-15 cells (100X) (0-5/hpf); Lymphocytes 4 % (21-51); MDiff Complete? YES; Mean Corpuscular Hemoglobin 32.5 pg (27.0-31.0); Mean Corpuscular Volume 98.4 fl (78.0-98.0); Mean Platelet Volume 11.8 fL (7.4-10.4); Neutrophil 78 % (42-75); Platelet Count 31 10x3/uL (130-400); Platelet Morphology Comment Appears Decreased; RBC Distribution Width 13.1 % (11.5-14.5); Red Blood Cell (RBC) Count 3.03 mill/uL (4.70-6.10); White Blood Cell (WBC) Count 10.7 10x3/uL (4.8-10.8)
[2022-06-13 07:54] LABS: Actual Bicarbonate (HCO3a) 26.3 mEq/L (22-28); Base Excess (BEa) 1.1 mEq/L (-2.0 to +3.0); CO2 Tension 44.3 mmHg (35.0-45.0); Calcium, Ionized (arterial) 0.98 mmol/L (1.12-1.30); Carboxyhemoglobin (COHb) 0.3 gm% (0.0-3.0); Hemoglobin (Hb) 10.9 g/dL (14.0-18.0); Potassium - ABG Lab 4.91 mmol/L (3.70-5.30); pH, Arterial 7.39 (7.35-7.45)
[2022-06-13 07:59] LABS: O2 Tension (PaO2), arterial 55.7 mmHg (80.0-100.0); Puncture Site RRA
[2022-06-13 08:00] LABS: ALV-art Gradient 459.325 mmHg (0-20)
[2022-06-13] MEDS: Polyethylene Glycol 3350 17 GM Packet PER TUBE SCH (08:54)
[2022-06-13] MEDS: Dexamethasone 10 MG/ML VIAL SLOW IVP SCH (08:54)
[2022-06-13] MEDS: Pantoprazole 40 MG VIAL IVP SCH (08:54)
[2022-06-13] MEDS: Senokot S 8.6-50 MG TAB PER TUBE SCH ×2 (08:54→21:30)
[2022-06-13] MEDS: Cholecalciferol (Vitamin D3) 400 UNITS TAB PO SCH (08:54)
[2022-06-13] MEDS ORDERED: Heparin 10,000 UNITS/ 10 ML VIAL ONE (10:27)
[2022-06-13] MEDS: Albumin 25% 25 GM/100 ML BOT IVPB SCH (13:52)
[2022-06-13] MEDS: Nicotine 14 MG PATCH TD SCH (21:30)
[2022-06-13] MEDS: Acetaminophen 325 MG TAB PER TUBE PRN (21:35)
[2022-06-14] MEDS: Acetaminophen 325 MG TAB PER TUBE PRN ×3 (03:46→23:29)
[2022-06-14 05:17] LABS: ALT (SGPT) 311 U/L (8-55); AST (SGOT) 281 U/L (5-34); Albumin 3.5 g/dL (3.5-5.0); Alkaline Phosphatase 173 U/L (40-110); Anion Gap 20 mmol/L (10-20); BUN (Urea Nitrogen) 71 mg/dL (8.9-20.6); Bilirubin, Direct 0.6 mg/dL (0.1-0.3); Calc. Creatinine Clearance 0 mL/min (70-130); Calcium 8.9 mg/dL (7.8-10.44); Carbon Dioxide 26 mmol/L (22-29); Chloride 94 mmol/L (98-107); Estimated GFR 18; Glucose 96 mg/dL (70-105); Potassium 4.5 mmol/L (3.5-5.1); Protein, Total 6.9 g/dL (6.0-8.3); Sodium 135 mmol/L (136-145)
[2022-06-14 05:29] LABS: CK (CPK) 6729 U/L (30-200)
[2022-06-14 06:58] LABS: Band 13 % (5-11); Hemoglobin 10.2 g/dL (14.0-18.0); Lymphocytes 4 % (21-51); MDiff Complete? YES; Mean Corpuscular HGB CONC 34.1 g/dL (32.0-36.0); Mean Corpuscular Hemoglobin 33.5 pg (27.0-31.0); Mean Platelet Volume 12.3 fL (7.4-10.4); Monocytes 1 % (0-10); Neutrophil 82 % (42-75); Platelet Count 44 10x3/uL (130-400); Platelet Morphology Comment Appears Decreased; RBC Distribution Width 13.1 % (11.5-14.5); Red Blood Cell (RBC) Count 3.03 mill/uL (4.70-6.10); White Blood Cell (WBC) Count 10.4 10x3/uL (4.8-10.8)
[2022-06-14 08:04] LABS: Actual Bicarbonate (HCO3a) 25.7 mEq/L (22-28); Base Excess (BEa) 0.6 mEq/L (-2.0 to +3.0); CO2 Tension 43.2 mmHg (35.0-45.0); Calcium, Ionized (arterial) 1.06 mmol/L (1.12-1.30); Hemoglobin (Hb) 12.7 g/dL (14.0-18.0); Potassium - ABG Lab 4.47 mmol/L (3.70-5.30); pH, Arterial 7.39 (7.35-7.45)
[2022-06-14 08:25] LABS: O2 Tension (PaO2), arterial 52.4 mmHg (80.0-100.0)
[2022-06-14 08:26] LABS: Puncture Site LRA
[2022-06-14] MEDS: Dexamethasone 10 MG/ML VIAL SLOW IVP SCH (09:25)
[2022-06-14] MEDS: Polyethylene Glycol 3350 17 GM Packet PER TUBE SCH (09:25)
[2022-06-14] MEDS: Pantoprazole 40 MG VIAL IVP SCH (09:25)
[2022-06-14] MEDS: Senokot S 8.6-50 MG TAB PER TUBE SCH ×2 (09:25→20:34)
[2022-06-14] MEDS: Cholecalciferol (Vitamin D3) 400 UNITS TAB PO SCH (09:25)
[2022-06-14] MEDS ORDERED: Vecuronium 10 MG VIAL ONE (09:52)
[2022-06-14] MEDS: Vecuronium 10 MG VIAL IV PRN ×4 (10:05→16:32)
[2022-06-14] MEDS ORDERED: Heparin 10,000 UNITS/ 10 ML VIAL ONE (10:22)
[2022-06-14] MEDS: Albumin 25% 25 GM/100 ML BOT IVPB SCH (16:21)
[2022-06-14] MEDS: Dexmedetomidine 1,000 MCG in Sodium Chloride 0.9% 250 ML 240 ML IVPB SCH (17:51)
[2022-06-14] MEDS: NOREPINEPHRINE 8 MG/250 ML-D5W 250 ML IVPB SCH (20:33)
[2022-06-14] MEDS: Nicotine 14 MG PATCH TD SCH (21:45)
[2022-06-15] MEDS: Sterile Water 10 ML VIAL FS PRN (02:59)
[2022-06-15] MEDS: Vecuronium 10 MG VIAL IV PRN ×2 (02:59→07:34)
[2022-06-15 04:39] LABS: Anion Gap 22 mmol/L (10-20); BUN (Urea Nitrogen) 80 mg/dL (8.9-20.6); Calc. Creatinine Clearance 0 mL/min (70-130); Calcium 8.2 mg/dL (7.8-10.44); Carbon Dioxide 24 mmol/L (22-29); Chloride 97 mmol/L (98-107); Estimated GFR 16; Glucose 106 mg/dL (70-105); Potassium 4.5 mmol/L (3.5-5.1); Sodium 138 mmol/L (136-145)
[2022-06-15] MEDS: Acetaminophen 325 MG TAB PER TUBE PRN (04:51)
[2022-06-15 05:07] LABS: Band 16 % (5-11); Hemoglobin 9.9 g/dL (14.0-18.0); Large Platelets SLIGHT; MDiff Complete? YES; Mean Corpuscular HGB CONC 33.6 g/dL (32.0-36.0); Mean Corpuscular Hemoglobin 32.7 pg (27.0-31.0); Mean Corpuscular Volume 97.2 fl (78.0-98.0); Mean Platelet Volume 12.4 fL (7.4-10.4); Metamyelocyte 1 % (0-0); Monocytes 1 % (0-10); Neutrophil 82 % (42-75); Nucleated RBC 2 % (0); Platelet Count 67 10x3/uL (130-400); Platelet Morphology Comment Appears Decreased; RBC Distribution Width 13.1 % (11.5-14.5); Red Blood Cell (RBC) Count 3.03 mill/uL (4.70-6.10); White Blood Cell (WBC) Count 12.5 10x3/uL (4.8-10.8)
[2022-06-15] MEDS: Polyethylene Glycol 3350 17 GM Packet PER TUBE SCH (07:34)
[2022-06-15] MEDS: Acetaminophen 650 MG Suppository PR PRN ×2 (07:34→14:21)
[2022-06-15] MEDS: Senokot S 8.6-50 MG TAB PER TUBE SCH ×2 (07:34→20:20)
[2022-06-15] MEDS: Cholecalciferol (Vitamin D3) 400 UNITS TAB PO SCH (07:34)
[2022-06-15] MEDS: Dexamethasone 10 MG/ML VIAL SLOW IVP SCH (07:34)
[2022-06-15] MEDS: Pantoprazole 40 MG VIAL IVP SCH (08:43)
[2022-06-15] MEDS ORDERED: Heparin 10,000 UNITS/ 10 ML VIAL ONE (10:30)
[2022-06-15] MEDS ORDERED: Cefepime 2 GM in Sodium Chloride 0.9% 100 ML IVPB SCH (11:00)
[2022-06-15] MEDS: Dexmedetomidine 1,000 MCG in Sodium Chloride 0.9% 250 ML 240 ML IVPB SCH (11:47)
[2022-06-15] MEDS: Micafungin 100 MG in Sodium Chloride 0.9% 100 ML IVPB SCH (12:07)
[2022-06-15] MEDS ORDERED: VANCOMYCIN 2 GRAM/500 ML BAG 2 GM in Premix Bag 1 BAG IVPB SCH (13:00)
[2022-06-15] MEDS ORDERED: Vancomycin Dialysis Sliding Scale (Wt > 99) FS SCH (17:00)
[2022-06-15] MEDS: Nicotine 14 MG PATCH TD SCH (20:20)
[2022-06-16] MEDS: Dexmedetomidine 1,000 MCG in Sodium Chloride 0.9% 250 ML 240 ML IVPB SCH ×2 (03:36→16:49)
[2022-06-16 04:24] LABS: Anion Gap 21 mmol/L (10-20); BUN (Urea Nitrogen) 78 mg/dL (8.9-20.6); Calc. Creatinine Clearance 35 mL/min (70-130); Calcium 7.4 mg/dL (7.8-10.44); Carbon Dioxide 23 mmol/L (22-29); Chloride 98 mmol/L (98-107); Estimated GFR 18; Glucose 118 mg/dL (70-105); Potassium 4.3 mmol/L (3.5-5.1); Sodium 138 mmol/L (136-145)
[2022-06-16 04:27] LABS: #Lymphocytes 0.5 thou/uL (1.20-3.40); #Monocytes 0.2 thou/uL (0.11-0.59); #Neutrophils 9.1 thou/uL (1.40-6.50); %Eosinophils 0.1 % (0.0-10.0); %Lymphocytes 5.3 % (21.0-51.0); %Neutrophils 92.7 % (42.0-75.0); Mean Corpuscular HGB CONC 33.3 g/dL (32.0-36.0); Mean Corpuscular Hemoglobin 32.3 pg (27.0-31.0); Mean Corpuscular Volume 97.2 fl (78.0-98.0); Mean Platelet Volume 12.7 fL (7.4-10.4); Platelet Count 53 10x3/uL (130-400); RBC Distribution Width 13.1 % (11.5-14.5); Red Blood Cell (RBC) Count 2.48 mill/uL (4.70-6.10); White Blood Cell (WBC) Count 9.8 10x3/uL (4.8-10.8)
[2022-06-16 04:36] LABS: CK (CPK) 6151 U/L (30-200)
[2022-06-16] MEDS ORDERED: Ipratropium Bromide 2.5 ml Neb ONE (07:16)
[2022-06-16] MEDS ORDERED: Albuterol Sulfate 1.25 MG/3 ML NEB ONE (07:16)
[2022-06-16 07:27] LABS: Vancomycin, Random 32.1 ug/mL (See Comment)
[2022-06-16 07:53] LABS: Actual Bicarbonate (HCO3a) 25.9 mEq/L (22-28); Base Excess (BEa) 2.5 mEq/L (-2.0 to +3.0); CO2 Tension 35.3 mmHg (35.0-45.0); Calcium, Ionized (arterial) 0.93 mmol/L (1.12-1.30); Carboxyhemoglobin (COHb) 0.8 gm% (0.0-3.0); Hemoglobin (Hb) 8.3 g/dL (14.0-18.0); Potassium - ABG Lab 4.44 mmol/L (3.70-5.30); pH, Arterial 7.48 (7.35-7.45)
[2022-06-16 07:54] LABS: Puncture Site LRA
[2022-06-16 07:55] LABS: ALV-art Gradient 600.875 mmHg (0-20)
[2022-06-16] MEDS ORDERED: HOLD VANCOMYCIN FOR LEVEL >25 SLOW IVP SCH (08:45)
[2022-06-16] MEDS: Senokot S 8.6-50 MG TAB PER TUBE SCH ×2 (08:59→20:23)
[2022-06-16] MEDS: Cholecalciferol (Vitamin D3) 400 UNITS TAB PO SCH (08:59)
[2022-06-16] MEDS: Dexamethasone 10 MG/ML VIAL SLOW IVP SCH (08:59)
[2022-06-16] MEDS: Polyethylene Glycol 3350 17 GM Packet PER TUBE SCH (08:59)
[2022-06-16] MEDS: Pantoprazole 40 MG VIAL IVP SCH (08:59)
[2022-06-16] MEDS: Vecuronium 10 MG VIAL IV PRN ×5 (09:56→22:20)
[2022-06-16] MEDS ORDERED: Heparin 10,000 UNITS/ 10 ML VIAL ONE (10:20)
[2022-06-16] MEDS ORDERED: Albuterol Sulfate 2.5 mg/0.5 ml Neb ONE ×2 (11:15→14:05)
[2022-06-16] MEDS: Micafungin 100 MG in Sodium Chloride 0.9% 100 ML IVPB SCH (11:38)
[2022-06-16] MEDS: Cefepime 1 GM in Sodium Chloride 0.9% 100 ML IVPB SCH (16:05)
[2022-06-16] MEDS ORDERED: Cefepime 2 GM in Sodium Chloride 0.9% 100 ML IVPB SCH (17:00)
[2022-06-16] MEDS: Nicotine 14 MG PATCH TD SCH (20:23)
[2022-06-17] MEDS: Morphine 4 MG/ML VIAL SLOW IVP PRN (00:37)
[2022-06-17] MEDS: Vecuronium 10 MG VIAL IV PRN ×6 (02:00→17:43)
[2022-06-17 02:41] VITALS: BP 114/71
[2022-06-17 04:40] LABS: Anion Gap 25 mmol/L (10-20); BUN (Urea Nitrogen) 77 mg/dL (8.9-20.6); Calc. Creatinine Clearance 37 mL/min (70-130); Calcium 7.5 mg/dL (7.8-10.44); Carbon Dioxide 22 mmol/L (22-29); Chloride 98 mmol/L (98-107); Estimated GFR 19; Glucose 103 mg/dL (70-105); Sodium 140 mmol/L (136-145)
[2022-06-17 04:50] LABS: Band 10 % (5-11); Hemoglobin 9.2 g/dL (14.0-18.0); Lymphocytes 4 % (21-51); MDiff Complete? YES; Mean Corpuscular HGB CONC 33.4 g/dL (32.0-36.0); Mean Corpuscular Hemoglobin 33.1 pg (27.0-31.0); Mean Platelet Volume 11.9 fL (7.4-10.4); Neutrophil 86 % (42-75); Platelet Count 98 10x3/uL (130-400); RBC Distribution Width 13.4 % (11.5-14.5); Red Blood Cell (RBC) Count 2.76 mill/uL (4.70-6.10); Toxic Granulation SLIGHT; White Blood Cell (WBC) Count 13.1 10x3/uL (4.8-10.8)
[2022-06-17 06:51] LABS: Actual Bicarbonate (HCO3a) 22.3 mEq/L (22-28); Base Excess (BEa) -3.4 mEq/L (-2.0 to +3.0); CO2 Tension 43.2 mmHg (35.0-45.0); Calcium, Ionized (arterial) 0.93 mmol/L (1.12-1.30); Carboxyhemoglobin (COHb) 0.3 gm% (0.0-3.0); Hemoglobin (Hb) 10.1 g/dL (14.0-18.0); pH, Arterial 7.33 (7.35-7.45)
[2022-06-17] MEDS: Dexmedetomidine 1,000 MCG in Sodium Chloride 0.9% 250 ML 240 ML IVPB SCH (06:52)
[2022-06-17 06:58] LABS: O2 Tension (PaO2), arterial 46.4 mmHg (80.0-100.0); Puncture Site RRA
[2022-06-17] MEDS ORDERED: Propofol 1,000 MG/100 ML VIAL IV ONE (07:01)
[2022-06-17] MEDS ORDERED: Acetaminophen 500 MG TAB PER TUBE SCH (07:30)
[2022-06-17] MEDS: Propofol 1,000 MG/100 ML VIAL IV PRN ×2 (07:44→17:49)
[2022-06-17] MEDS ORDERED: Propofol BOLUS 1,000 MG/100 ML VIAL IV PRN (07:45)
[2022-06-17] MEDS: Polyethylene Glycol 3350 17 GM Packet PER TUBE SCH (08:30)
[2022-06-17] MEDS: Cholecalciferol (Vitamin D3) 400 UNITS TAB PO SCH (08:30)
[2022-06-17] MEDS: Senokot S 8.6-50 MG TAB PER TUBE SCH (08:30)
[2022-06-17] MEDS: Dexamethasone 10 MG/ML VIAL SLOW IVP SCH (08:31)
[2022-06-17] MEDS: Pantoprazole 40 MG VIAL IVP SCH (08:31)
[2022-06-17] MEDS ORDERED: Digoxin 0.5 MG/2 ML AMP SLOW IVP SCH (08:45)
[2022-06-17] MEDS ORDERED: Heparin 10,000 UNITS/ 10 ML VIAL ONE (10:16)
[2022-06-17 10:42] LABS: Vancomycin, Random 21.2 ug/mL (See Comment)
[2022-06-17] MEDS: Micafungin 100 MG in Sodium Chloride 0.9% 100 ML IVPB SCH (13:28)
[2022-06-17 13:39] VITALS: BMI 40.8
[2022-06-17] MEDS ORDERED: Vancomycin HCl 500 MG in Sodium Chloride 0.9% 100 ML IVPB SCH (17:00)
[2022-06-17] MEDS: Cefepime 1 GM in Sodium Chloride 0.9% 100 ML IVPB SCH (17:43)
[2022-06-17 21:33] VITALS: TEMP 100.3
== END 2022-06-17 20:37 | disposition expired | DRG 870 ==
LOC: ERS 20:34 → IMCU/EMU 21:46 → CCU 06-06 04:50
PROVIDERS: ADMIT Student in an Organized Health Care Education/Training Program; ATTEND Internal Medicine
PROC: 3E03329 Introduction of Other Anti-infective into Peripheral Vein, Percutaneous Approach (ICD-10-PCS; 2022-06-05)
PROC: 5A09357 Assistance with Respiratory Ventilation, Less than 24 Consecutive Hours, Continuous Positive Airway Pressure (ICD-10-PCS; 2022-06-05)
PROC: 5A1955Z Respiratory Ventilation, Greater than 96 Consecutive Hours (ICD-10-PCS; principal; 2022-06-06)
PROC: 0BH17EZ Insertion of Endotracheal Airway into Trachea, Via Natural or Artificial Opening (ICD-10-PCS; 2022-06-06)
PROC: 02HV33Z Insertion of Infusion Device into Superior Vena Cava, Percutaneous Approach (ICD-10-PCS; 2022-06-06)
PROC: B548ZZA Ultrasonography of Superior Vena Cava, Guidance (ICD-10-PCS; 2022-06-06)
PROC: 3E043XZ Introduction of Vasopressor into Central Vein, Percutaneous Approach (ICD-10-PCS; 2022-06-06)
PROC: 06HY33Z Insertion of Infusion Device into Lower Vein, Percutaneous Approach (ICD-10-PCS; 2022-06-07)
PROC: 5A1D70Z Performance of Urinary Filtration, Intermittent, Less than 6 Hours Per Day (ICD-10-PCS; 2022-06-07)
DX: A40.3 Sepsis due to Streptococcus pneumoniae (principal); J10.08 Influenza due to other identified influenza virus with other specified pneumonia; I21.A1 Myocardial infarction type 2; J80 Acute respiratory distress syndrome; R65.21 Severe sepsis with septic shock; G93.41 Metabolic encephalopathy; K72.00 Acute and subacute hepatic failure without coma; N17.0 Acute kidney failure with tubular necrosis; J13 Pneumonia due to Streptococcus pneumoniae; Z68.41 Body mass index [BMI] 40.0-44.9, adult; E87.1 Hypo-osmolality and hyponatremia; M62.82 Rhabdomyolysis; I42.9 Cardiomyopathy, unspecified; Z51.5 Encounter for palliative care; Z66 Do not resuscitate; Z20.822 Contact with and (suspected) exposure to COVID-19; E86.0 Dehydration; I10 Essential (primary) hypertension; E66.9 Obesity, unspecified; E66.01 Morbid (severe) obesity due to excess calories; F17.210 Nicotine dependence, cigarettes, uncomplicated; D69.6 Thrombocytopenia, unspecified; F15.10 Other stimulant abuse, uncomplicated; E87.5 Hyperkalemia; E83.51 Hypocalcemia; I46.9 Cardiac arrest, cause unspecified
CPT/HCPCS: 36415; 36416; 36600; 71045; 71275; 76770; 80048; 80053; 80061; 80076; 80202; 80306; 81001; 81003; 81015; 82140; 82550; 82805; 82947; 83605; 83690; 83735; 83880; 84100; 84145; 84300; 84478; 84484; 85025; 85610; 85730; 86140; 86704; 87040; 87081; 87086; 87449; 87899; 89220; 90935; 93005; 93010; 93306; 94002; 94003; 94640; 94660; 94760; 96374; C9113; G0257; J0610; J0692; J1100; J1160; J1642; J1644; J1815; J1940; J1956; J2248; J2250; J2270; J2704; J2765; J2920; J2997; J3370; J3370-JW; J3490; J7050; J7070; J7120; J7611; J7620; J7999; P9047; Q9967